=== PATIENT | male | born 1960 | race Caucasian/White ===

== ENCOUNTER 2020-12-08 20:11 | Emergency (ER) | payer OTHER ==
[~2020-12-08 20:11] MED LIST: DICLOFENAC SODI50 MG PO; FLEXERIL5 MG PO; LEXAPRO5 MG PO; LIPITOR40 MG PO; LISINOPRIL40 MG PO; MOBIC7.5 MG PO; NORCO 5-325 TA1 EACH PO; PRINIVIL20 MG PO
[2020-12-08 20:45] LABS: BASOPHIL 0.9 % (0-2); HCT 42.1 % (42.0-52.0); HGB 14.1 g/dl (13.2-18.0); LYMPHOCYTE 43.5 % (15-48); MCH 29.7 pg (25.0-31.0); MCHC 33.5 g/dL (32.0-36.0); MCV 88.8 fL (78.0-100.0); MONOCYTE 6.9 % (0-12); MPV 8.6 fL (6.0-9.5); NEUTROPHIL 46.6 % (41-80); NRBC 0; PLT 378 K/uL (150-400); RBC 4.74 M/uL (4.70-6.00); RDW 12.8 % (11.5-14.0); WBC 9.2 K/uL (4.0-10.5)
[2020-12-08 21:09] LABS: BILIRUBIN - TOTAL 0.4 mg/dL (0.2-1.0); BUN/CREAT RATIO (CALC) 15.2 RATIO; CREATININE 0.92 mg/dL (0.67-1.17); POTASSIUM 3.9 mmol/L (3.5-5.1)
[2020-12-08] MEDS ORDERED: MEDROL 4MG DOSEP4 MG PO (22:56)
[2020-12-08] MEDS ORDERED: ROBAXIN500 MG PO (22:56)
== END 2020-12-08 23:15 | disposition home or self-care (01) ==
LOC: FER 20:11
PROVIDERS: Emergency Medicine Emergency Medical Services
DX: S20.214A Contusion of middle front wall of thorax, initial encounter (principal); R10.84 Generalized abdominal pain; M54.2 Cervicalgia; M54.6 Pain in thoracic spine; I10 Essential (primary) hypertension; Z86.69 Personal history of other diseases of the nervous system and sense organs; Z88.6 Allergy status to analgesic agent; Z88.8 Allergy status to other drugs, medicaments and biological substances; Z98.2 Presence of cerebrospinal fluid drainage device; Z79.899 Other long term (current) drug therapy; V49.40XA Driver injured in collision with unspecified motor vehicles in traffic accident, initial encounter; Y92.410 Unspecified street and highway as the place of occurrence of the external cause
CPT/HCPCS: 36415; 70450; 71260; 72125; 72128; 72131; 80053; 82150; 82550; 83605; 83690; 84484; 85025; 93005; 94010; J1170; J1885; J2270; J2405; J2930; Q9967